=== PATIENT | female | born 1970 | race Hispanic/Latino ===

== ENCOUNTER 2023-08-10 14:47 | Emergency (ER) | payer BC ==
[~2023-08-10] VITALS: Ht 160 cm; Wt 81.6 kg
[2023-08-10 14:49] VITALS: BP 157/86; PULSE 96; RESP 16
== END 2023-08-10 19:22 | disposition left against medical advice (07) ==
LOC: EDH 14:47
DX: M79.674 Pain in right toe(s) (principal); Z53.21 Procedure and treatment not carried out due to patient leaving prior to being seen by health care provider